=== PATIENT | male | born 1990 | race Caucasian/White ===

== ENCOUNTER 2017-04-26 09:29 | Emergency (ER) | payer MEDICAID ==
[2017-04-26 09:50] LABS: APPEARANCE CLEAR (CLEAR); BILIRUBIN NEGATIVE (NEGATIVE); COLOR DK YELLOW (YELLOW); GLUCOSE NEGATIVE (NEGATIVE); KETONE SMALL mg/dL (NEGATIVE); NITRITE NEGATIVE (NEGATIVE); PROTEIN NEGATIVE (NEGATIVE)
[2017-04-26 09:54] LABS: BACTERIA FEW /hpf (NONE SEEN); EPITHELIAL CELLS 0-5 /hpf (0-5); MUCUS >1+ /lpf (NONE SEEN); RED CELLS - URINE OCC /hpf (0-5)
[2017-04-26 09:59] LABS: BASOPHILS 0.1 % (0-2); EOSINOPHILS 1.3 % (0-7); HEMATOCRIT 42.7 % (42.0-54.0); HEMOGLOBIN 15.7 g/dL (13.5-17.5); IMMATURE GRANULOCYTES 0.5 % (0-5); LYMPHOCYTES 14.5 % (15-50); MCH 32.8 pg (26.0-34.0); MCHC 36.8 g/dL (31.0-37.0); MCV 89.1 fL (80.0-100.0); MEAN PLATELET VOLUME 10.3 fL (7.4-10.4); MONOCYTES 6.1 % (2-11); NEUTROPHILS 77.5 % (40-80); PLATELET COUNT 199 10x3/uL (130-400); RBC 4.79 10x6/uL (4.20-6.10); RDW 12.2 % (11.5-14.5); WBC 8.6 10x3/uL (4.8-10.8)
[2017-04-26 10:16] LABS: ALBUMIN 4.2 g/dL (3.4-5.0); ALKALINE PHOSPHATASE 57 U/L (46-116); ALT (SGPT) 24 U/L (10-68); BILIRUBIN - TOTAL 0.84 mg/dL (0.2-1.3); CALC OSMOLALITY 277 mosm/kg (275-300); CALCIUM 9.4 mg/dL (8.5-10.1); CARBON DIOXIDE 28.3 mmol/L (21.0-32.0); CHLORIDE - SERUM 102 mmol/L (98-107); CREATININE - SERUM 1.1 mg/dL (0.6-1.3); GLUCOSE 96 mg/dL (74-106); POTASSIUM - SERUM 3.7 mmol/L (3.5-5.1); PROTEIN - SERUM 7.7 g/dL (6.4-8.2); SODIUM 139 mmol/L (136-145); UREA NITROGEN 12 mg/dL (7-18); eGFR NON AFRICAN AMERICAN 85 mL/min (90-120)
[2017-04-26 11:20] LABS: UDS - AMPHET POSITIVE QUAL (NEGATIVE); UDS - BARB NEGATIVE QUAL (NEGATIVE); UDS - BENZO NEGATIVE QUAL (NEGATIVE); UDS - COCAINE NEGATIVE QUAL (NEGATIVE); UDS - OPIATE NEGATIVE QUAL (NEGATIVE); UDS - PCP NEGATIVE QUAL (NEGATIVE); UDS - THC POSITIVE QUAL (NEGATIVE)
== END 2017-04-26 15:00 | disposition home or self-care (01) ==
LOC: D.ER 09:29
PROVIDERS: Family Medicine
DX: R41.82 Altered mental status, unspecified (principal); F15.10 Other stimulant abuse, uncomplicated; F12.10 Cannabis abuse, uncomplicated

== ENCOUNTER 2018-03-21 20:51 | Emergency (ER) | payer SELFPAY ==
[~2018-03-21] VITALS: Ht 170.2 cm; Wt 90.9 kg
[2018-03-21 20:58] VITALS: Ht 170.2 cm; Wt 90.9 kg
[2018-03-21] MEDS ORDERED: VOLTAREN75 MG PO (22:06)
[2018-03-21] MEDS ORDERED: MINOCIN50 MG PO (22:06)
[2018-03-21 23:12] VITALS: BP 116/81
== END 2018-03-21 23:13 | disposition home or self-care (01) ==
LOC: D.ER 20:51
DX: L03.031 Cellulitis of right toe (principal)

== ENCOUNTER 2018-06-15 21:04 | Inpatient (IN) | payer MEDICAID ==
[~2018-06-15] VITALS: Ht 170.2 cm; Wt 90.7 kg
[~2018-06-15 21:04] MED LIST: MINOCIN50 MG PO; VOLTAREN75 MG PO
[2018-06-15 22:04] VITALS: BP 150/86
[2018-06-15 22:19] LABS: BASOPHILS 0.1 % (0-2); EOSINOPHILS 0.6 % (0-7); HEMATOCRIT 38.1 % (42.0-54.0); HEMOGLOBIN 14.2 g/dL (13.5-17.5); IMMATURE GRANULOCYTES 0.5 % (0-5); LYMPHOCYTES 12.8 % (15-50); MCH 32.4 pg (26.0-34.0); MCHC 37.3 g/dL (31.0-37.0); MEAN PLATELET VOLUME 9.3 fL (7.4-10.4); MONOCYTES 7.5 % (2-11); NEUTROPHILS 78.5 % (40-80); PLATELET COUNT 212 10x3/uL (130-400); RBC 4.38 10x6/uL (4.20-6.10); RDW 12.1 % (11.5-14.5); WBC 12.8 10x3/uL (4.8-10.8)
[2018-06-15 22:30] VITALS: BP 148/74
[2018-06-15 22:39] LABS: ALBUMIN 3.5 g/dL (3.4-5.0); ALKALINE PHOSPHATASE 70 U/L (46-116); ALT (SGPT) 26 U/L (10-68); BILIRUBIN - TOTAL 0.74 mg/dL (0.2-1.3); CALC OSMOLALITY 276 mosm/kg (275-300); CALCIUM 9.2 mg/dL (8.5-10.1); CARBON DIOXIDE 30.4 mmol/L (21.0-32.0); CHLORIDE - SERUM 101 mmol/L (98-107); CREATININE - SERUM 0.9 mg/dL (0.6-1.3); GLUCOSE 112 mg/dL (74-106); POTASSIUM - SERUM 3.5 mmol/L (3.5-5.1); PROTEIN - SERUM 7.6 g/dL (6.4-8.2); SODIUM 138 mmol/L (136-145); UREA NITROGEN 12 mg/dL (7-18); eGFR NON AFRICAN AMERICAN > 90 mL/min (90-120)
[2018-06-15 22:49] LABS: C-REACTIVE PROTEIN 9.7 mg/dL (0.0-0.9); CKMB 0.3 U/L (0.0-3.6); CREATINE KINASE 68 UL (21-232); TROPONIN-I < 0.017 ng/mL (0.000-0.060)
[2018-06-15 23:38] LABS: ERYTHROCYTE SEDIMENTATION RATE 36 mm/hr (0-15)
[2018-06-16] VITALS (7 sets, daily range): BP systolic 141–155; BP diastolic 85–110; Ht 170.2 cm; Wt 90.7 kg
[2018-06-16 00:01] LABS: APPEARANCE CLEAR (CLEAR); BILIRUBIN NEGATIVE (NEGATIVE); COLOR YELLOW (YELLOW); GLUCOSE NEGATIVE (NEGATIVE); KETONE NEGATIVE (NEGATIVE); NITRITE NEGATIVE (NEGATIVE); PH 6.5 (5.0-6.0); PROTEIN NEGATIVE (NEGATIVE); SPECIFIC GRAVITY 1.015 (1.005-1.020); UROBILINOGEN NORMAL (NORMAL)
[2018-06-16 00:05] LABS: UDS - AMPHET POSITIVE QUAL (NEGATIVE); UDS - BARB NEGATIVE QUAL (NEGATIVE); UDS - BENZO NEGATIVE QUAL (NEGATIVE); UDS - COCAINE NEGATIVE QUAL (NEGATIVE); UDS - OPIATE NEGATIVE QUAL (NEGATIVE); UDS - PCP NEGATIVE QUAL (NEGATIVE); UDS - THC POSITIVE QUAL (NEGATIVE)
--- NOTE | 2018-06-16 01:13 | NUR ---
REPORT GIVEN TO RENE AVILA
--- NOTE | 2018-06-16 08:37 | NUR ---
AAOX4. ON ROOM AIR, IV TO RIGHT FOREARM SALINE LOCKED PATENT, AMBULATORY, DENIES ANY CURRENT NEEDS OR DISCOMFORTS, BED LOWERED AND LOCKED, CALL LIGHT WITHIN REACH. CPOC
[2018-06-16 08:59] LABS: CALC OSMOLALITY 272 mosm/kg (275-300); CHLORIDE - SERUM 103 mmol/L (98-107); CREATININE - SERUM 0.8 mg/dL (0.6-1.3); GLUCOSE 101 mg/dL (74-106); POTASSIUM - SERUM 4.3 mmol/L (3.5-5.1); SODIUM 137 mmol/L (136-145); UREA NITROGEN 10 mg/dL (7-18); eGFR NON AFRICAN AMERICAN > 90 mL/min (90-120)
[2018-06-16 09:25] LABS: HEMOGLOBIN 14.1 g/dL (13.5-17.5); MCH 31.8 pg (26.0-34.0); MCHC 36.2 g/dL (31.0-37.0); PLATELET COUNT 242 10x3/uL (130-400); RBC 4.43 10x6/uL (4.20-6.10); RDW 12.5 % (11.5-14.5); WBC 12.2 10x3/uL (4.8-10.8)
[2018-06-16 10:41] LABS: BASOPHILS 1 % (0-2); EOSINOPHILS 3 % (0-7); LYMPHOCYTES 20 % (15-50); MONOCYTES 13 % (2-11); NEUTROPHILS 61 % (40-80); PLATELET ESTIMATE NORMAL
[2018-06-16 12:02] LABS: CKMB 0.3 U/L (0.0-3.6); TROPONIN-I < 0.017 ng/mL (0.000-0.060)
--- NOTE | 2018-06-16 18:17 | NUR ---
PREOP COMPLETE. IV TO RIGHT FOREARM PATENT, ON ROOM AIR, DENIES ANY NEEDS OR CONCERNS. SCD ON, BED LOWERED AND LOCKED, CALL LIGHT WITHIN REACH. CPOC
--- NOTE | 2018-06-16 20:09 | NUR ---
RESTING QUEITLY. NO DISTRESS NOTED. REMAINS NPO.AWAITING OR.IV INFUSING TO RFA WITHOUT REDNESS OR EDEMA NOTED. RIGHT THUMB AND MIDDLE FINGER WITH EDEMA AND DISCOLORATION NOTED. NO COMPLAITNS VOICED. CL IN REACH
--- NOTE | 2018-06-16 21:13 | NUR ---
TO OR VIA BED
--- NOTE | 2018-06-16 22:10 | NUR ---
RETURNED FROM RR. DROWSY BUT AROUSES TO VERBAL STIMULI. DRESSING TO RIGHT HAND WITH BLOODY DRAINAGE NOTED. CL IN REACH
--- NOTE | 2018-06-16 23:30 | NUR ---
I have reviewed this patient and I concur with the Shift Assessment completed by the Licensed Practical Nurse today this shift.
[2018-06-17 00:30] VITALS: BP 141/94
[2018-06-17 04:30] VITALS: BP 138/92
[2018-06-17 05:31] LABS: BASOPHILS 0.2 % (0-2); EOSINOPHILS 1.4 % (0-7); HEMATOCRIT 38.2 % (42.0-54.0); HEMOGLOBIN 13.7 g/dL (13.5-17.5); IMMATURE GRANULOCYTES 0.5 % (0-5); LYMPHOCYTES 15.5 % (15-50); MCH 31.7 pg (26.0-34.0); MCHC 35.9 g/dL (31.0-37.0); MCV 88.4 fL (80.0-100.0); MEAN PLATELET VOLUME 9.7 fL (7.4-10.4); MONOCYTES 9.3 % (2-11); NEUTROPHILS 73.1 % (40-80); PLATELET COUNT 240 10x3/uL (130-400); RBC 4.32 10x6/uL (4.20-6.10); RDW 12.4 % (11.5-14.5); WBC 13.1 10x3/uL (4.8-10.8)
[2018-06-17 05:45] LABS: CALC OSMOLALITY 273 mosm/kg (275-300); CALCIUM 8.8 mg/dL (8.5-10.1); CARBON DIOXIDE 25.4 mmol/L (21.0-32.0); CHLORIDE - SERUM 101 mmol/L (98-107); CREATININE - SERUM 0.8 mg/dL (0.6-1.3); GLUCOSE 102 mg/dL (74-106); SODIUM 137 mmol/L (136-145); UREA NITROGEN 12 mg/dL (7-18); eGFR NON AFRICAN AMERICAN > 90 mL/min (90-120)
--- NOTE | 2018-06-17 07:59 | OP ---
PATIENT NAME: CONSUELO TAYLOR MEDICAL RECORD: [id number] :89 LOCATION:D.MS [address]27 ADMISSION DATE:06/16/18 SURGEON: SAMMY BENITEZ DO DATE OF OPERATION: 06/16/2018 PROCEDURE PERFORMED: Right middle finger and thumb incision and debridement. PREOPERATIVE DIAGNOSIS: Infection of right thumb and middle finger. POSTOPERATIVE DIAGNOSIS: Infection of right thumb and middle finger. INDICATIONS: Mr. Taylor is a 28-year-old male who admits to shooting methamphetamine and he said that he got "splinters" in his middle finger and thumb of his right hand. He says that these became infected and that he tried to "adriana them" and then he showed up to the ER early this morning, was admitted and placed on vancomycin. He had quite a large abscess on the volar at palmar aspect of the thumb. The tip of it appeared to be necrotic with purulent fluid underneath it. The same was occurring in the middle finger, the palmar side, more radial side, radiopalmar. The finger was quite large as well and he had pain with passive motion. I told him to quit eating and saw him about 11:00 or closer to the noon today, I said stop eating, we would have to do an irrigation or an incision and debridement if you want to try to save those fingers that he still may have wound infection gone too far, he might lose them. I told him the risks would be further surgery and need for further surgery, continued infection, and eventual possible amputation of those fingers. He was okay with that and signed the consent. SURGEON: Sammy Benitez DO DESCRIPTION OF PROCEDURE: The patient was taken to the operative suite, given some light sedation by anesthesia and the thumb and middle finger were digital blocked after timeout was performed. Everyone is agreeance to correct side, site, patient, and procedure. Digital block was performed with Marcaine 0.25% 5 mL in each digit, the thumb and the middle finger. After that was done, the right hand was prepped and draped in sterile fashion. Incision then began first over the middle finger on the volar side over the middle phalanx and mid diagonal cut and purulent fluid gushed out of the incision. This was then debrided, some of the skin was removed, and a freer was used to free up any loculations there and along the flexor tendon sheath to ensure there was no flexor tenosynovitis. The thumb was then addressed and an incision was made over the pulp of the volar or palmar thumb longitudinally and again more purulent fluid gushed out of that. There was some necrotic tissue there, which was debrided and it encircled his whole distal tip of his thumb. Another small incision was made on the volar side of the thumb, distal tip just proximal to the nail, avoiding the nail bed and then this was opened up also with scissors and a freer ensuring no purulence was there and a freer ran along to free up the flexor tendon, freeing up any possible flexor tenosynovitis. Then, noticing the middle finger was still swollen and diagonal incision was made over the proximal phalanx on the palmar side from ulnar to radial opposite of the more distal incision which was radial-ulnar and the sheath was opened up as well, flexor tendon sheath on that side. All these sites were then irrigated. The thumb included and then cultures had been taken after the first incision on the middle finger. The hand was then cleaned up. Adaptic was placed over the incisions, they were left open. Telfa was put over that and then 4 x 4s wrapping that and 2 inch Kerlix was used to wrap over them. This was then secured with tape. He OPERATIVE REPORT [id number] CONSUELO TAYLOR was then awakened and taken back to his room due to the fact he was not put completely under intubated and in stable condition. BLOOD LOSS: Minimal. COMPLICATIONS: None. TRANSINT:[id number] Voice Confirmation ID: [id number] DOCUMENT ID: [id number] SAMMY BENITEZ DO at 0759 CC: [id number] DICTATION DATE: 06/16/182205 [facility] NURSE: 06/17/18 0039 ADM IN [place] [id number] [place] [address]
[2018-06-17 09:14] VITALS: BP 124/87
[2018-06-17 12:17] VITALS: BP 116/84
[2018-06-17 13:12] LABS: HEPATITIS C ANTIBODY <0.1 S/CO RAT (0.0-0.9)
--- NOTE | 2018-06-17 14:28 | NUR ---
NUTRITION F/U PT TOLERATING REG DIET WITH 100% INTAKE RECENT MEALS. PT TO BE NPO AFTER MN FOR POSSIBLE PROCEDURE TOMORROW. RD FOLLOWING
[2018-06-17 16:33] VITALS: BP 126/75
--- NOTE | 2018-06-17 19:55 | NUR ---
RESTING QUIELTLY.NO DISTRESS NOTED. RESP UNLABORED.DRESSING TO RIGHT HAND WITH DRIED BLOODY DRAINAGE NOTED. SL TO RFA WITHOUT REDNESS OR EDEMA. NO COMPLAINTS VOICED. CL IN REACH
[2018-06-17 20:02] VITALS: BP 119/76
[2018-06-18] VITALS: BP 123/80
--- NOTE | 2018-06-18 00:25 | NUR ---
I have reviewed this patient and I concur with the Shift Assessment completed by the Licensed Practical Nurse today this shift.
[2018-06-18 04:00] VITALS: BP 133/78
[2018-06-18 06:19] LABS: BASOPHILS 0.4 % (0-2); EOSINOPHILS 3.8 % (0-7); HEMATOCRIT 38.1 % (42.0-54.0); HEMOGLOBIN 13.2 g/dL (13.5-17.5); IMMATURE GRANULOCYTES 0.8 % (0-5); LYMPHOCYTES 30.3 % (15-50); MCH 31.2 pg (26.0-34.0); MCHC 34.6 g/dL (31.0-37.0); MCV 90.1 fL (80.0-100.0); MEAN PLATELET VOLUME 9.5 fL (7.4-10.4); MONOCYTES 11.4 % (2-11); NEUTROPHILS 53.3 % (40-80); PLATELET COUNT 254 10x3/uL (130-400); RBC 4.23 10x6/uL (4.20-6.10); RDW 12.3 % (11.5-14.5)
[2018-06-18 06:31] LABS: CALC OSMOLALITY 281 mosm/kg (275-300); CARBON DIOXIDE 30.1 mmol/L (21.0-32.0); CHLORIDE - SERUM 105 mmol/L (98-107); CREATININE - SERUM 0.8 mg/dL (0.6-1.3); GLUCOSE 98 mg/dL (74-106); POTASSIUM - SERUM 4.4 mmol/L (3.5-5.1); SODIUM 141 mmol/L (136-145); UREA NITROGEN 14 mg/dL (7-18); eGFR NON AFRICAN AMERICAN > 90 mL/min (90-120)
--- NOTE | 2018-06-18 07:15 | NUR ---
PATIENT IN BED WITH EYES CLOSED RESTING QUIETLY. CALL LIGHT WITHIN REACH.
[2018-06-18 08:04] VITALS: BP 133/84
--- NOTE | 2018-06-18 08:56 | NUR ---
PATIENT IN BED WITH IV INTACT. ASSESSMENT COMPLETE , VS STABLE. BSCDS PLACED ON LEGS. ON AND WORKING. DRESSING TO RIGHT HAND CDI. CALL LIGHT WITHIN REACH.
[2018-06-18 13:09] VITALS: BP 148/84
--- NOTE | 2018-06-18 14:31 | MORECARE ---
CASE MANAGEMENT DISCHARGE SUMMARY PATIENT: CONSUELO MTZ UNIT: [id number] ADM DATE: 06/16/18 AGE: 28 : 90 SEX: M ROOM/BED: D.2227 AUTHOR: CINDI SAUL PHYSICIAN: REFERRING PHYSICIAN: ANDRÉS NELSON MD DATE OF SERVICE: 06/18/18 Discharge Plan Patient Name: CONSUELO MTZ [facility] [facility] 1990 Planned Disposition: Home Anticipated Discharge Date: Discharge Date: Expected LOS: Initial Reviewer: [email or web address] Initial Review Date: 06/18/2018 Generated: 06/18/18 3:31 pm Patient Name: CONSUELO MTZ Page 70635 at 1431 All edits/amendments must be made on the electronic document DICTATION DATE: 06/18/181429 PHYSICIST NUCLEAR: MAYUR 06/18/18 143 RPT#: [id number] DC DATE: STATUS: ADM IN [facility] [address] [place] [address] END OF REPORT
--- NOTE | 2018-06-18 14:39 | MORECARE ---
CASE MANAGEMENT DISCHARGE SUMMARY PATIENT: CONSUELO MTZ UNIT: [id number] ADM DATE: 06/16/18 AGE: 28 : 90 SEX: M ROOM/BED: D.2227 AUTHOR: CINDI SAUL PHYSICIAN: REFERRING PHYSICIAN: ANDRÉS NELSON MD DATE OF SERVICE: 06/18/18 Discharge Plan Patient Name: CONSUELO MTZ Facility: [facility]:[place] : 1990 Planned Disposition: Home Anticipated Discharge Date: Discharge Date: Expected LOS: Initial Reviewer: [email or web address] Initial Review Date: 06/18/2018 Generated: 06/18/18 3:39 pm Comments DCP- Discharge Planning Updated by [email or web address]: Promise Escalona on 06/18/18 1:[address] Patient Name: CONSUELO MTZ Admission Status: ER Accout number: [id number] Admission Date: 06-16-2018 : 1990 Admission Diagnosis: Attending: ANDRÉS NELSON Current LOS: 2 Anticipated DC Date: Planned Disposition: Home Primary Insurance: MEDICAID [place] PENDING Discharge Planning Comments: CM met with patient to complete initial dc planning assessment. CM educated patient on the CM role and verbal consent given by patient to complete assessment. Patient lives at home alone. At discharge patient plans to return and feels this is a safe discharge. He states he lives in a neighborhood where there's a group of friends that all help each other. He states he lives behind his leadership development manager and she would be able to assist with dressing changes to his hand as needed. He states he typically walks to where he needs to go. He states he will probably need transportation home if he can not get someone to take him home. I informed him that his Medicaid is pending, but when her received the paperwork in the mail, he needed to call or go online to chose a PCP. CM discussed availability of home health, rehab services, and medical equipment. Patient denied known discharge needs at this time. CM will continue to follow and will assist as needed with dc plans/needs. Ground Crewman Mission Support: Promise Escalona DCPIA - Discharge Planning Initial Assessment Updated by [email or web address]: Promise Escalona on 06/18/18 2:34 pm * Is the patient Alert and Oriented? Yes * How many steps to enter\exit or inside your home? 3/0 * PCP None * Pharmacy [facility] [address] * Preadmission Environment Home Alone * ADLs Independent * Equipment None * List name and contact numbers for known caregivers / representatives who currently or will assist patient after discharge: Ana Cristina Bebetolizzie - step mother - owns [employer] - [phone] or [phone] * Verbal permission to speak to the caregivers and representatives has been obtained from the patient. No * Community resources currently utilized None * Additional services required to return to the preadmission environment? No * Can the patient safely return to the preadmission environment? Yes * Has this patient been hospitalized within the prior 30 days at any hospital? No Last DP export: 06/18/18 1:31 p Patient Name: CONSUELO MTZ Page 37919 at 1439 All edits/amendments must be made on the electronic document DICTATION DATE: 06/18/181438 CORRUGATOR OPERATOR HELPER: MAYUR 06/18/181438 RPT#: [id number] DC DATE: STATUS: ADM IN [facility] [address] [place] [address] END OF REPORT
--- NOTE | 2018-06-18 16:42 | EC ---
PATIENT:CONSUELO MTZ DATE OF SERVICE: 06/16/18 SEX: M MEDICAL RECORD: [id number] DATE OF : [birth year] LOCATION:D.MS [address]ckett222 AGE OF PATIENT: 28 ADMISSION DATE: 06/16/18 REFERRING PHYSICIAN: INTERPRETING PHYSICIAN: KELSEY FERNANDEZ MD ECHOCARDIOGRAM REPORT ECHO CHARGES 4 ECHO COMPLETE Date: 06/16/18 CLINICAL DIAGNOSIS: R/O ENDOCARDITIS ECHOCARDIOGRAPHIC MEASUREMENTS (adult normal given) AC root (d.<3.7cm) 3.3 cm LV Septum d (<1.2 cm> 1.5 cm Valve Excursion 2.1 cm LV Septum (systole) 1.8 cm Left Atria (s.<4.0cm> 3.1 cm LVPW d(<1.2cm) 1.4 cm RV (d.<2.3cm) 2.1 cm LVPW (sytole) 2.1 cm LV diastole(<5.6CM) 5.0 cm MV E-F(>70mm/sec) cm LV systole 2.9 cm LVOT Diameter 2.1 cm MV exc.(>10mm) cm Est.ejection fraction (50-75%) % DOPPLER: LVIT cm/sec A 48.0 cm/sec E 78.0 cm/sec LA cm/sec RVSP 34.0 mmHg LVOT 109 cm/sec AOP1/2T m/s Asc. Ao 142 cm/sec RVOT 83.0 cm/sec RA cm/sec PA 116 cm/sec AV Gradient Peak 8.1 mmHg AV Mean 4.0 mmHg AV Area 2.4 cm MV Gradient Peak 4.2 mmHg MV Mean 1.0 mmHg MV Area cm COMMENTS: Client Relation Specialist: Natalie AVILAOE Occasional Caregiver: 1 Dr. Fernandez TAPE# PACS Pericardial Effusion N DATE OF SERVICE: 06/16/2018 ECHOCARDIOGRAM DATE OF SERVICE: 06/16/2018 FINDINGS: 1. Left ventricular chamber size is within normal limits. Left ventricular systolic function is normal. Overall ejection fraction estimated at 60%. 2. Left atrium, right atrium and right ventricular chamber sizes are within ECHOCARDIOGRAM REPORT [id number] CONSUELO MTZ normal limits. 3. Valvular structures have normal structure and motion. 4. Doppler interrogation reveals only moderate mitral regurgitation, mild tricuspid regurgitation, no other valvular insufficiency or stenosis. Pulmonary systolic pressure is estimated at 34 mmHg. 5. No evidence of pericardial effusion or left ventricular thrombus. 6. No evidence of vegetative endocarditis. TRANSINT:[id number] Voice Confirmation ID: [id number] DOCUMENT ID: [id number] KELSEY FERNANDEZ MD at 1642 CC: [id number] DICTATION DATE: 06/17/18 0839 FORWARDER OPERATOR: 06/17/18 0938 ADM IN [place] [id number] [place] [id number]
[2018-06-18 16:44] VITALS: BP 132/84
[2018-06-18 20:00] VITALS: BP 136/70
[2018-06-19] VITALS: BP 122/78
[2018-06-19 04:00] VITALS: BP 133/87
[2018-06-19 05:33] LABS: BASOPHILS 0.5 % (0-2); EOSINOPHILS 3.9 % (0-7); HEMATOCRIT 36.3 % (42.0-54.0); IMMATURE GRANULOCYTES 0.8 % (0-5); LYMPHOCYTES 29.2 % (15-50); MCH 31.6 pg (26.0-34.0); MCHC 35.8 g/dL (31.0-37.0); MEAN PLATELET VOLUME 9.4 fL (7.4-10.4); MONOCYTES 8.2 % (2-11); NEUTROPHILS 57.4 % (40-80); PLATELET COUNT 255 10x3/uL (130-400); RBC 4.12 10x6/uL (4.20-6.10); RDW 12.1 % (11.5-14.5); WBC 7.4 10x3/uL (4.8-10.8)
[2018-06-19 05:44] LABS: MCV 88.1 fL (80.0-100.0)
[2018-06-19 05:47] LABS: CALC OSMOLALITY 281 mosm/kg (275-300); CALCIUM 9.1 mg/dL (8.5-10.1); CARBON DIOXIDE 28.7 mmol/L (21.0-32.0); CHLORIDE - SERUM 105 mmol/L (98-107); CREATININE - SERUM 0.9 mg/dL (0.6-1.3); GLUCOSE 99 mg/dL (74-106); POTASSIUM - SERUM 3.9 mmol/L (3.5-5.1); SODIUM 141 mmol/L (136-145); UREA NITROGEN 14 mg/dL (7-18); eGFR NON AFRICAN AMERICAN > 90 mL/min (90-120)
[2018-06-19 09:13] VITALS: BP 137/91
[2018-06-19] MEDS ORDERED: CLEOCIN HCL300 MG PO (13:30)
[2018-06-19] MEDS ORDERED: ULTRAM50 MG PO (13:32)
--- NOTE | 2018-06-19 13:57 | NUR ---
I have reviewed this patient and I concur with the Shift Assessment completed by the Licensed Practical Nurse today this shift.
[2018-06-19 14:18] VITALS: BP 136/80
--- NOTE | 2018-06-19 15:42 | NUR ---
IV DC WITH CATH INTACT, DC INSTRCUTIONS GIVEN PT VERBALIZES UNDERSTANDING WRITTEN PRESCPTION GIVEN TO PT LEAVING VIA WHEELCHAIR IN STABLE CONDITON
--- NOTE | 2018-06-22 10:01 | MORECARE ---
CASE MANAGEMENT DISCHARGE SUMMARY PATIENT: CONSUELO TAYLOR UNIT: [id number] ADM DATE: 06/16/18 AGE: 28 : [birth year] SEX: M ROOM/BED: D.2227 AUTHOR: CINDI SAUL PHYSICIAN: REFERRING PHYSICIAN: ANDRÉS NELSON MD DATE OF SERVICE: 06/22/18 Discharge Plan Patient Name: CONSUELO TAYLOR Facility: [facility]:[place] : 1990 Planned Disposition: Home Anticipated Discharge Date: Discharge Date: 06/19/2018 Expected LOS: 0 Initial Reviewer: [email or web address] Initial Review Date: 06/18/2018 Generated: 06/22/18 11:01 am Comments DCP- Discharge Planning Updated by [email or web address]: Promise Escalona on 06/18/18 1:[address] Patient Name: CONSUELO TAYLOR Admission Status: ER Accout number: [id number] Admission Date: 06-16-2018 : 1990 Admission Diagnosis: Attending: ANDRÉS NELSON Current LOS: 2 Anticipated DC Date: Planned Disposition: Home Primary Insurance: MEDICAID [place] PENDING Discharge Planning Comments: CM met with patient to complete initial dc planning assessment. CM educated patient on the CM role and verbal consent given by patient to complete assessment. Patient lives at home alone. At discharge patient plans to return and feels this is a safe discharge. He states he lives in a neighborhood where there's a group of friends that all help each other. He states he lives behind his litigation services manager and she would be able to assist with dressing changes to his hand as needed. He states he typically walks to where he needs to go. He states he will probably need transportation home if he can not get someone to take him home. I informed him that his Medicaid is pending, but when her received the paperwork in the mail, he needed to call or go online to chose a PCP. CM discussed availability of home health, rehab services, and medical equipment. Patient denied known discharge needs at this time. CM will continue to follow and will assist as needed with dc plans/needs. Endless Steamer Tender: Promise Escalona DCPIA - Discharge Planning Initial Assessment Updated by [email or web address]: Promise Escalona on 06/18/18 2:34 pm * Is the patient Alert and Oriented? Yes * How many steps to enter\exit or inside your home? 3/0 * PCP None * Pharmacy [facility] [address] * Preadmission Environment Home Alone * ADLs Independent * Equipment None * List name and contact numbers for known caregivers / representatives who currently or will assist patient after discharge: Ana Cristina Taylor - step mother - owns [employer] - [phone] or [phone] * Verbal permission to speak to the caregivers and representatives has been obtained from the patient. No * Community resources currently utilized None * Additional services required to return to the preadmission environment? No * Can the patient safely return to the preadmission environment? Yes * Has this patient been hospitalized within the prior 30 days at any hospital? No Last DP export: 06/18/18 1:39 p Patient Name: CONSUELO TAYLOR Page [phone] at 1001 All edits/amendments must be made on the electronic document DICTATION DATE: 06/22/18 1000 PHYSICAL EDUCATION INSTRUCTOR: MAYUR 06/22/18 1000 RPT#: [id number] DC DATE:06/19/18 STATUS: DIS IN [facility] [address] [place] [address] END OF REPORT
== END 2018-06-19 15:44 | disposition home or self-care (01) | DRG 580 ==
LOC: D.ER 21:04 → D.MS 06-16 00:11
PROVIDERS: Family Medicine; ADMIT Internal Medicine Nephrology; ATTEND Internal Medicine Nephrology
PROC: 0J9J0ZZ Drainage of Right Hand Subcutaneous Tissue and Fascia, Open Approach (ICD-10-PCS; principal; 2018-06-17)
PROC: 0HBFXZZ Excision of Right Hand Skin, External Approach (ICD-10-PCS; 2018-06-17)
DX: L03.113 Cellulitis of right upper limb (principal); I96 Gangrene, not elsewhere classified; F15.988 Other stimulant use, unspecified with other stimulant-induced disorder; I20.8 Other forms of angina pectoris; I10 Essential (primary) hypertension

== ENCOUNTER 2018-08-25 05:01 | Inpatient (IN) | payer MEDICAID ==
[~2018-08-25] VITALS: Ht 170.2 cm; Wt 77.3 kg
[~2018-08-25 05:01] MED LIST changes: +CLEOCIN HCL300 MG PO; +ULTRAM50 MG PO
--- NOTE | 2018-08-25 05:39 | NUR ---
SCANNED ANTIBIOTICS AND DOCUMENTED TO HANGING AND WHILE WAS HANGING REALIZED BLOOD CULTURES HAVE NOT BEEN DRAWN. CALLED LAB TO VERIFY BLOOD CULTURE ORDER. NOTIFIED DR. ASHER THAT ANTIBIOTICS HAVE NOT BEEN HUNG D/T BLOOD CULTURES HAVE NOT BEEN DRAWN.
[2018-08-25 05:50] LABS: BASOPHILS 0.4 % (0-2); EOSINOPHILS 7.8 % (0-7); HEMATOCRIT 35.5 % (42.0-54.0); HEMOGLOBIN 13.1 g/dL (13.5-17.5); IMMATURE GRANULOCYTES 0.3 % (0-5); LYMPHOCYTES 32.5 % (15-50); MCHC 36.9 g/dL (31.0-37.0); MCV 86.8 fL (80.0-100.0); MONOCYTES 5.6 % (2-11); NEUTROPHILS 53.4 % (40-80); RBC 4.09 10x6/uL (4.20-6.10); RDW 12.7 % (11.5-14.5); WBC 6.8 10x3/uL (4.8-10.8)
[2018-08-25 05:51] LABS: PLATELET COUNT 178 10x3/uL (130-400)
[2018-08-25 06:06] LABS: ALBUMIN 3.3 g/dL (3.4-5.0); ALKALINE PHOSPHATASE 54 U/L (46-116); ALT (SGPT) 25 U/L (10-68); BILIRUBIN - TOTAL 0.46 mg/dL (0.2-1.3); CALC OSMOLALITY 279 mosm/kg (275-300); CALCIUM 8.4 mg/dL (8.5-10.1); CARBON DIOXIDE 28.5 mmol/L (21.0-32.0); CHLORIDE - SERUM 105 mmol/L (98-107); CREATININE - SERUM 0.9 mg/dL (0.6-1.3); GLUCOSE 122 mg/dL (74-106); POTASSIUM - SERUM 3.6 mmol/L (3.5-5.1); PROTEIN - SERUM 6.5 g/dL (6.4-8.2); SODIUM 141 mmol/L (136-145); UREA NITROGEN 7 mg/dL (7-18); eGFR NON AFRICAN AMERICAN > 90 mL/min (90-120)
[2018-08-25 06:08] LABS: C-REACTIVE PROTEIN < 0.2 mg/dL (0.0-0.9)
[2018-08-25 06:56] LABS: ERYTHROCYTE SEDIMENTATION RATE 4 mm/hr (0-15)
--- NOTE | 2018-08-25 07:03 | NUR ---
BEDSIDE REPROT GIVEN TO COURTNEY ROMO
--- NOTE | 2018-08-25 07:23 | NUR ---
BEDSIDE SHIFT REPORT RECEIVED FROM COURTNEY RUBIO. PT RESTING QUIETLY, EYES CLOSED. VANCO INFUSING, NS INFUSING AT THIS TIME. WILL CONTINUE TO MONITOR.
[2018-08-25 07:24] VITALS: BP 127/81
[2018-08-25 10:48] VITALS: BP 123/85; Ht 170.2 cm; Wt 77.3 kg
[2018-08-25 13:31] VITALS: BP 131/96
[2018-08-25 17:21] VITALS: BP 137/91
[2018-08-25 19:24] VITALS: BP 140/98
[2018-08-25 21:25] VITALS: BP 141/96
[2018-08-26 02:22] VITALS: BP 142/82
--- NOTE | 2018-08-26 05:43 | NUR ---
I have reviewed this patient and I concur with the Shift Assessment completed by the Licensed Practical Nurse today this shift.
[2018-08-26 05:55] VITALS: BP 144/99
[2018-08-26 06:13] LABS: HEMATOCRIT 39.4 % (42.0-54.0); HEMOGLOBIN 14.9 g/dL (13.5-17.5)
--- NOTE | 2018-08-26 06:31 | OP ---
PATIENT NAME: CONSUELO ATYLOR MEDICAL RECORD: [id number] :[birth year] LOCATION:D.MS Crockett2210 ADMISSION DATE:08/25/18 SURGEON: SAMMY BENITEZ DO DATE OF OPERATION: 08/25/2018 PROCEDURE: Right thumb distal phalanx amputation. 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 INDICATIONS: Mr. Taylor is a 28-year-old male who had a right thumb and the right middle finger I&D a few months ago. He never showed up for followup and showed up to the ER this morning with his distal phalanx of his right thumb exposed. He said he did not have had time to come to the doctor for it. He did admit to shooting meth recently. The distal phalanx was exposed and on x-ray showed erosion in the distal phalanx. It was also erythematous. I informed him that he would most likely need amputation of that due to fully exposed bone. He would need that taken off and is going to have a good chance of healing as the skin had eroded away from around it. He was okay with that and was aware of the risk including further infection, need for further amputation, bleeding, damage to nerves and vessels in the area and absence of the distal part of his thumb at the IP joint and he signed the consent. SURGEON: Sammy Benitez DO DESCRIPTION OF THE PROCEDURE: The patient was taken to the operative suite in the supine position and given general anesthetic and LMA was placed. He was on vancomycin and Zosyn on the floor. The right thumb was then prepped and draped in a sterile fashion. The time out was performed, everyone was in agreement as to the correct side, site, patient, and procedure. The incision was began over the IP joint on the dorsal surface and extending distally, marked out, the small finger with a 6.5 glove was used as a tourniquet on the finger at that time and then the distal phalanx was exposed from the thumb was pulled out. It was removed very easily and the incision then was used to cut through the IP joint dorsally and extending distally cutting out the opening of the skin where the distal phalanx was out through. Once this was removed, the flap was brought up and with 4-0 Vicryl in a horizontal mattress fashion and brought up over the proximal phalanx that remained. The proximal phalanx cartilage was removed prior to this. This was then closed with horizontal mattress sutures in a running stitch with 4-0 nylon. The finger tourniquet was then removed. There was a very little bleeding. Finger was then blocked with 0.25% Marcaine without epinephrine at the base doing a digital block with 9 mL and then it was dressed with Adaptic, 4 x 4s, Kerlix, and a Coban was lightly wrapped around the finger to the thumb and down to the wrist. He was awakened and taken to the recovery in stable condition. BLOOD LOSS: Minimal. COMPLICATIONS: None. OPERATIVE REPORT [id number] SMITHCONSUELO TRANSINT:[id number] Voice Confirmation ID: [id number] DOCUMENT ID: [id number] SAMMY BENITEZ DO at 0631 CC: [id number] DICTATION DATE: 08/25/181851 BED WORKER: 08/25/182118 ADM IN [facility] [address] [place] [address]
--- NOTE | 2018-08-26 07:47 | NUR ---
AWAKE AND ALERT. ORIENTED X3. C/O RIGHT THUMB PAIN THIS AM. WILL MONITOR. LUNGS ARE CLEAR BILATERALLY, NO COUGH NOTED. SKIN IS INTACT WTIHOUT REDNESS EXCEPT RIGHT THUMB INSICIION WHICH HAS A DRY INTACT DRESSING IN PLACE. IV TO RIGHT FOREARM AREA IS PATENT WITHOUT REDNESS AT INSERTION SITE. DENIES NEEDS.
--- NOTE | 2018-08-26 09:00 | NUR ---
ATE 2 BREAKFAST TRAYS THIS AM. DENIES NEEDS. REPORTS SOME PAIN BUT REFUSED OFFER OF PRN. WILL MONITOR.
[2018-08-26 09:41] VITALS: BP 156/64
[2018-08-26] MEDS ORDERED: HYDROCODON-ACE1 EAC7 PO (12:30)
[2018-08-26] MEDS ORDERED: BACTRIM 400-801 TAB PO (12:30)
--- NOTE | 2018-08-26 13:04 | NUR ---
REQUESTED AND GIVEN 15MG TORADOL SLOW IVP FOR C/O RIGHT THUMB PAIN LEVEL 7. WILL MONITOR.
[2018-08-26 13:51] VITALS: BP 153/82
--- NOTE | 2018-08-26 15:15 | NUR ---
DISCHARGED TO HOME AMBULATORY VIA TAXI. DISCHARGE INSTRUCTIONS GIVEN BOTH VERBALLY AND WRITTEN. ALL QUESTIONS ANSWERED. PATIENT VERBALIZED UNDERSTANDING OF SAME. NEEDED PRESCRIPTIONS GIVNE TO PATIENT. REQUESTED TO WAIT TILL AFTER DINNER TO LEAVE. IV TO RIGHT FOREARM D/C WITH CATHETER INTACT.
--- NOTE | 2018-08-26 15:46 | MORECARE ---
CASE MANAGEMENT DISCHARGE SUMMARY PATIENT: CONSUELO MTZ UNIT: [id number] ADM DATE: 08/25/18 AGE: 28 : [birth year] SEX: M ROOM/BED: D.2210 AUTHOR: KGDOC PHYSICIAN: REFERRING PHYSICIAN: MARCUS BENITEZ DO DATE OF SERVICE: 08/26/18 Discharge Plan Patient Name: CONSUELO MTZ Facility: [facility]:[place] : 1990 Planned Disposition: Home Anticipated Discharge Date: Discharge Date: Expected LOS: Initial Reviewer: [email or web address] Initial Review Date: 08/25/2018 Generated: 08/26/18 4:46 pm Comments DCP- Discharge Planning Updated by [email or web address]: Shanika Staley on 08/26/18 2:[address] Patient Name: CONSUELO MTZ Admission Status: ER Accout number: [id number] Admission Date: 08-25-2018 : 1990 Admission Diagnosis: Attending: MARCUS BENITEZ Current LOS: 1 Anticipated DC Date: Planned Disposition: Home Primary Insurance: MEDICAID [place] Discharge Planning Comments: CM met with patient to complete initial dc planning assessment. CM educated patient on the CM role and verbal consent given by patient to complete assessment. Patient lives at home where he states he is independent with his care. At discharge patient plans to return home and feels this is a safe discharge. CM discussed availability of home health, rehab services, and medical equipment. Patient denied known discharge needs at this time. CM will provide him with a taxi at discharged. The cost is 9.50 and approval received from Nidia Landers. I also provided the patient with x2 bus tickets so he can get to his post op appointment at Dr Benitez's office and back home. CM will continue to follow and will assist as needed with dc plans/needs. Telecommunication Equipment Repairer: Shanika Staley DCPIA - Discharge Planning Initial Assessment Updated by [email or web address]: Shanika Staley on 08/26/18 3:37 pm * Is the patient Alert and Oriented? Yes * PCP NONE * [facility]acy [facility] * Preadmission Environment Home Alone * ADLs Independent * Verbal permission to speak to the caregivers and representatives has been obtained from the patient. N/A * Community resources currently utilized None * Additional services required to return to the preadmission environment? No * Can the patient safely return to the preadmission environment? Yes * Has this patient been hospitalized within the prior 30 days at any hospital? No Patient Name: CONSUELO MTZ Page 27669 at 1546 All edits/amendments must be made on the electronic document DICTATION DATE: 08/26/181545 TRANSPORTATION MECHANIC: MAYUR 08/26/181545 RPT#: [id number] DC DATE: STATUS: ADM IN [facility] [address] [place] [address] END OF REPORT
--- NOTE | 2018-08-26 18:30 | NUR ---
ATE 2 SUPPER TRAYS. DISCHARGED TO HOME AMBULATORY. TIMOTHY CALLED FOR PATIENT. ALL BELONGINGS WITH PATIENT.
--- NOTE | 2018-08-30 08:59 | MORECARE ---
CASE MANAGEMENT DISCHARGE SUMMARY PATIENT: CONSUELO MTZ UNIT: [id number] ADM DATE: 08/25/18 AGE: 28 : [birth year] SEX: M ROOM/BED: D.2210 AUTHOR: KGDOC PHYSICIAN: REFERRING PHYSICIAN: MARCUS BENITEZ DO DATE OF SERVICE: 08/30/18 Discharge Plan Patient Name: CONSUELO MTZ Facility: [facility]:[place]rr : 1990 Planned Disposition: Home Anticipated Discharge Date: Discharge Date: 08/26/2018 Expected LOS: 0 Initial Reviewer: [email or web address] Initial Review Date: 08/25/2018 Generated: 08/30/18 9:59 am Comments DCP- Discharge Planning Updated by [email or web address]: Shanika Staley on 08/26/18 2:[address] Patient Name: CONSUELO MTZ Admission Status: ER Accout number: [id number] Admission Date: 08-25-2018 : 1990 Admission Diagnosis: Attending: MARCUS BENITEZ Current LOS: 1 Anticipated DC Date: Planned Disposition: Home Primary Insurance: [place]ICAID [place] Discharge Planning Comments: CM met with patient to complete initial dc planning assessment. CM educated patient on the CM role and verbal consent given by patient to complete assessment. Patient lives at home where he states he is independent with his care. At discharge patient plans to return home and feels this is a safe discharge. CM discussed availability of home health, rehab services, and medical equipment. Patient denied known discharge needs at this time. CM will provide him with a taxi at discharged. The cost is 9.50 and approval received from Nidia Landers. I also provided the patient with x2 bus tickets so he can get to his post op appointment at Dr Benitez's office and back home. CM will continue to follow and will assist as needed with dc plans/needs. Manager Utilization: Shanika Staley DCPIA - Discharge Planning Initial Assessment Updated by [email or web address]: Shanika Staley on 08/26/18 3:37 pm * Is the patient Alert and Oriented? Yes * PCP NONE * [facility] * Preadmission Environment Home Alone * ADLs Independent * Verbal permission to speak to the caregivers and representatives has been obtained from the patient. N/A * Community resources currently utilized None * Additional services required to return to the preadmission environment? No * Can the patient safely return to the preadmission environment? Yes * Has this patient been hospitalized within the prior 30 days at any hospital? No Last DP export: 08/26/18 2:46 p Patient Name: CONSUELO MTZ Page [id number] at 0859 All edits/amendments must be made on the electronic document DICTATION DATE: 08/30/1859 CITY PLANNING ENGINEER: MAYUR 08/30/18 0859 RPT#: [id number] DC DATE:08/26/18 STATUS: DIS IN [facility] [address] [place] [address] END OF REPORT
== END 2018-08-26 18:45 | disposition home or self-care (01) | DRG 514 ==
LOC: D.ER 05:01 → D.MS 07:45
PROVIDERS: Family Medicine; ADMIT Orthopaedic Surgery; ATTEND Orthopaedic Surgery
PROC: 0X6L0Z0 Detachment at Right Thumb, Complete, Open Approach (ICD-10-PCS; principal; 2018-08-25 13:15)
DX: M86.141 Other acute osteomyelitis, right hand (principal)